=== PATIENT | female | born 1990 | race African-American/Black ===

== ENCOUNTER 2016-07-13 09:06 | Emergency (ER) | payer MEDICAID, OTHER ==
[~2016-07-13] VITALS: Ht 162.6 cm; Wt 96.0 kg
[~2016-07-13 09:06] MED LIST: CYCL1TAB29 PO; MACR100C2 PO; ZOFR4TAB3 SL; [UNRECOGNIZED DRUG - CODE]
[2016-07-13 09:08] VITALS: BP 127/69; PULSE 80; RESP 20; TEMP 98.7; O2SAT 100
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
[2016-07-13] MEDS ORDERED: METHOCARBAMOL 500 MG TAB PO ONE (09:45)
[2016-07-13] MEDS ORDERED: IBUPROFEN 800 MG TAB PO ONE (09:45)
[2016-07-13] MEDS ORDERED: IBUP800T23 PO (09:55)
[2016-07-13] MEDS ORDERED: ROBA500T PO (09:55)
== END 2016-07-13 11:10 | disposition home or self-care (01) ==
LOC: NETRI 09:06
DX: M54.5 Low back pain (principal); G89.29 Other chronic pain; S39.012A Strain of muscle, fascia and tendon of lower back, initial encounter; M54.41 Lumbago with sciatica, right side; V49.59XA Passenger injured in collision with other motor vehicles in traffic accident, initial encounter; Y92.410 Unspecified street and highway as the place of occurrence of the external cause
CPT/HCPCS: 99282; E0113

== ENCOUNTER 2016-09-15 07:47 | Emergency (ER) | payer MEDICAID ==
[~2016-09-15] VITALS: Ht 162.6 cm; Wt 95.0 kg
[~2016-09-15 07:47] MED LIST changes: +IBUP800T23 PO; +ROBA500T PO
[2016-09-15 07:49] VITALS: BP 114/65; PULSE 80; RESP 15; TEMP 98.7; O2SAT 98
--- NOTE | 2016-09-15 08:31 | PD ---
HPI Chief Complaint: ENT Complaint Time Seen by Provider: 08:30 Travel History International Travel<30 days: No Contact w/Intl Traveler<30days: No Traveled to known affect area: No History of Present Illness HPI 25-year-old female, approximately 8 weeks , presents to the emergency department with complaint of sore throat, nasal congestion that onset yesterday. Reports occasional cough but sore throat is her main complaint. Denies ear pain. Says that she's been having hot flashes but has not checked her temperature and cannot reported MAXIMUM TEMPERATURE. Denies lump in throat , difficulty swallowing, unusual drooling. Reports painful swallowing. Denies abdominal pain, cramping, nausea, vomiting. Denies vaginal bleeding or discharge. Has been taking Tylenol with no relief of symptoms. No known allergies. Has no other medical complaints. No other modifying factors or associated signs and symptoms. PFSH Past Medical History Diminished Hearing: No Gastrointestinal Disorders: Yes (ULCERS) GERD: Yes Headaches: Yes Respiratory: Yes (h/o bronchitis pt used to use inhaler but denies use now) Ulcer: Yes ?: LMP: 07/21/16 : 2 Para: 3 Social History Alcohol Use: Yes (OCCASIONALLY) Tobacco Use: No (MARIJUANA,QUIT 07-21-16) Substance Use: Yes (MARIJUANA) Allergies-Medications (Allergen,Severity, Reaction): Coded Allergies: No Known Allergies (Verified , 07/13/16) Reported Meds & Prescriptions Reported Meds & Active Scripts Active Robaxin (Methocarbamol) 500 Mg Tab 500 Mg PO QID PRN Ibuprofen 800 Mg Tab 800 Mg PO Q6HR PRN Zofran Odt (Ondansetron Odt) 4 Mg Tab 4 Mg SL Q6HR PRN Macrobid (Nitrofurantoin Monoh/Nitrofur Macro) 100 Mg Cap 100 Mg PO BID 10 Days Reported Flexeril (Cyclobenzaprine HCl) 10 Mg Tab 10 Mg PO TID Acetaminophen/Codeine Lorenza 300-60 mg (Acetaminophen W/ Codeine) 1 Tab Tab Q8HR Review of Systems Except as stated in HPI: all other systems reviewed are Neg Physical Exam Narrative GENERAL: Well-nourished, well-developed female patient, in no acute distress SKIN: Warm and dry. No rash. HEAD: Atraumatic. Normocephalic. EYES: Pupils equal and round at 3 mm with brisk reaction. No scleral icterus. No injection or drainage. PERRLA. ENT: Mucosa pink and dry. Pharynx with 1+ tonsils; with erythema; without exudate and edema. No Uvular edema. No uvular, palatal, or tonsillar deviation. Airway patent. Nasal congestion noted. EARS: Bilateral pinnae and external canals appear within normal limits. Bilateral tympanic membranes without erythema, dullness or perforation.. NECK: Trachea midline. No Anterior cervical lymphadenopathy and tenderness. CARDIOVASCULAR: Regular rate and rhythm. No murmur appreciated. RESPIRATORY: No accessory muscle use. Clear to auscultation. Breath sounds equal bilaterally. GASTROINTESTINAL: Abdomen soft, non-tender, nondistended. Hepatic and splenic margins not palpable. Bowel sounds are active 4 quadrants. MUSCULOSKELETAL: No obvious deformities. No clubbing. No cyanosis. No edema. NEUROLOGICAL: Awake and alert. Oriented 3. No obvious cranial nerve deficits. Motor grossly within normal limits. Normal speech. Moves all extremities. PSYCHIATRIC: Appropriate mood and affect; insight and judgment normal. Data Data Last Documented VS Vital Signs Date Time Temp Pulse Resp B/P Pulse Ox O2 Delivery O2 Flow Rate FiO2 09/15/16 07:49 98.7 80 15 114/65 98 Orders Group A Rapid Strep Screen (09/15/16 08:31) Strep Culture (Group A) (09/15/16 08:30) [facility] Medical Decision Making Medical Screen Exam Complete: Yes Emergency Medical Condition: Yes Medical Record Reviewed: Yes Differential Diagnosis Viral illness, viral pharyngitis, strep pharyngitis, less likely peritonsillar abscess Narrative Course 25-year-old female with sore throat and nasal congestion. Patient is approximately 8 weeks . Patient is afebrile and nontoxic-appearing. Reports chills, but has not taken her temperature cannot reports MAXIMUM TEMPERATURE. Rapid strep ordered. 0917: Rapid strep negative. Discussed viral illness and symptomatic management. Instructed patient to follow up with process lead. Patient verbalizes understanding and agreement with treatment plan. Patient is medically cleared and stable for discharge. Discussed reasons to return to the emergency department. Instructed patient to follow up with primary care provider. Patient agrees with treatment plan. The patients vital signs are stable and the patient is stable for outpatient follow-up and treatment. Patient discharged home, stable and in no acute distress. Diagnosis Primary Impression: Viral illness Referrals: Primary Care Physician Patient Instructions: Cold Symptoms (ED), General Instructions Departure Forms: Tests/Procedures, Work Release Enter return to work date: Sep 16, 2016 Additional Instructions: Antibiotics as prescribed and complete full course Tylenol as instructed and as needed for fever/pain Get plenty of sleep/rest Drink plenty of fluids to prevent dehydration; popsicles and Gatorade Use an air humidifier/turn off ceiling fans Follow-up with primary care provider Follow-up with process lead Return immediately to the emergency department with worsening of symptoms Med/Other Pt SpecificInfo: No Meds Exist/No RX given Disposition: 01 DISCHARGE HOME Condition: Stable Lisa Waldrop Sep 15, 2016 08:31
== END 2016-09-15 09:37 | disposition home or self-care (01) ==
LOC: NEPK 07:47
DX: O26.91 Pregnancy related conditions, unspecified, first trimester (principal); B34.9 Viral infection, unspecified; K21.9 Gastro-esophageal reflux disease without esophagitis; Z3A.08 8 weeks gestation of pregnancy
CPT/HCPCS: 87081; 87880; 99283

== ENCOUNTER 2016-10-06 08:48 | Emergency (ER) | payer MEDICAID ==
[~2016-10-06] VITALS: Ht 162.6 cm; Wt 95.0 kg
[2016-10-06 08:50] VITALS: BP 135/68; PULSE 89; RESP 16; TEMP 98.2; O2SAT 99
--- NOTE | 2016-10-06 09:09 | PD ---
HPI Chief Complaint: Related Problem Time Seen by Provider: 09:08 Travel History International Travel<30 days: No Contact w/Intl Traveler<30days: No Traveled to known affect area: No History of Present Illness HPI 26-year-old female who is 10 weeks came to the emergency room for feeling lightheaded and dizzy. Patient says this has been going on for past 1 week. Yesterday she had her blood pressure checked and her systolic was 99. No history of spotting or cramping. Patient is A1. Patient has not had any OB checkup yet. She says she had an appointment yesterday which she missed. Currently she does not appear to be in any significant distress and her vital signs are stable. Her blood sugar was 84. PFSH Past Medical History Narrative Medical List of her past medical, surgical, social and family history was reviewed from the nursing note. Diminished Hearing: No Gastrointestinal Disorders: Yes (ULCERS) GERD: Yes Headaches: Yes Respiratory: Yes (h/o bronchitis pt used to use inhaler but denies use now) Ulcer: Yes ?: : 2 Para: 3 Social History Alcohol Use: Yes (OCCASIONALLY) Tobacco Use: No (MARIJUANA,QUIT 07-21-16) Substance Use: Yes (MARIJUANA) Allergies-Medications (Allergen,Severity, Reaction): Coded Allergies: No Known Allergies (Verified , 10/06/16) Comments No known drug allergies Reported Meds & Prescriptions Reported Meds & Active Scripts Active Macrobid (Nitrofurantoin Monoh/Nitrofur Macro) 100 Mg Cap 100 Mg PO BID 7 Days [facility] ( 2/Iron/Folic Acid/Om3) 1 Each Combo..pkg 1 Tab PO DAILY 30 Days Robaxin (Methocarbamol) 500 Mg Tab 500 Mg PO QID PRN Ibuprofen 800 Mg Tab 800 Mg PO Q6HR PRN Zofran Odt (Ondansetron Odt) 4 Mg Tab 4 Mg SL Q6HR PRN Macrobid (Nitrofurantoin Monoh/Nitrofur Macro) 100 Mg Cap 100 Mg PO BID 10 Days Reported Flexeril (Cyclobenzaprine HCl) 10 Mg Tab 10 Mg PO TID Acetaminophen/Codeine Lorenza 300-60 mg (Acetaminophen W/ Codeine) 1 Tab Tab Q8HR Narrative Medication List of her home medications reviewed from the nursing note. Review of Systems Except as stated in HPI: all other systems reviewed are Neg Physical Exam Narrative GENERAL: Awake, alert, no obvious distress SKIN: Focused skin assessment warm/dry. HEAD: Atraumatic. Normocephalic. EYES: Pupils equal and round. No scleral icterus. No injection or drainage. ENT: No nasal bleeding or discharge. Mucous membranes pink and moist. NECK: Trachea midline. No JVD. CARDIOVASCULAR: Regular rate and rhythm. No murmur appreciated. RESPIRATORY: No accessory muscle use. Clear to auscultation. Breath sounds equal bilaterally. GASTROINTESTINAL: Abdomen soft, non-tender, nondistended. Hepatic and splenic margins not palpable. MUSCULOSKELETAL: No obvious deformities. No clubbing. No cyanosis. No edema. NEUROLOGICAL: Awake and alert. No obvious cranial nerve deficits. Motor grossly within normal limits. Normal speech. PSYCHIATRIC: Appropriate mood and affect; insight and judgment normal. Data Data Last Documented VS Vital Signs Date Time Temp Pulse Resp B/P Pulse Ox O2 Delivery O2 Flow Rate FiO2 10/06/16 10:41 81 16 105/61 99 10/06/16 08:50 98.2 Orders Urinalysis - C+S If Indicated (10/06/16 09:13) Ed Urine Pregnancytest Poc (10/06/16 09:13) Blood Glucose (10/06/16 09:13) Urine Culture (10/06/16 09:20) Nitrofurantoin Monohyd Macrocr (Macrobid (10/06/16 10:30) Labs Laboratory Tests Test 10/06/16 09:20 Urine Color YELLOW Urine Turbidity CLEAR Urine pH 8.0 Urine Specific [place] 1.011 Urine Protein NEG mg/dL Urine Glucose (UA) NEG mg/dL Urine Ketones NEG mg/dL Urine Occult Blood NEG Urine Nitrite NEG Urine Bilirubin NEG Urine Urobilinogen LESS THAN 2.0 MG/DL Urine Leukocyte Esterase SMALL Urine RBC 1 /hpf Urine WBC 10 /hpf Urine Squamous Epithelial 1 /hpf Cells Urine Mucus FEW /lpf Microscopic Urinalysis Comment CULTURE INDICATED MDM Medical Decision Making Medical Screen Exam Complete: Yes Emergency Medical Condition: Yes Medical Record Reviewed: Yes Differential Diagnosis Dehydration, anemia, related dizziness Narrative Course 9:28 AM patient is given some orange juice to drink. Her sugar is all right. Continues to be hemodynamically stable. Awaiting for the UA to be done and resulted. If this is within normal limits patient will be discharged home. She needs to follow up with her OB. I'll give her prescription for vitamins since she is not on 1. 10:21 AM UA shows possible UTI. I gave her a dose of Macrobid and prescription to go home with. Procedures EKG Prior to Arrival: No Diagnosis Primary Impression: First trimester Additional Impressions: Dizziness UTI (urinary tract infection) Qualified Code: N39.0 - Urinary tract infection without hematuria, site unspecified Referrals: Primary Care Physician Additional Instructions: Please follow-up with your OB. Do not miss the next appointment. Take the pills as per the prescription direction. If symptoms worsen please call your OB to get an appointment sooner. Med/Other Pt SpecificInfo: Prescription(s) given Scripts Nitrofurantoin Monohydrate Macrocrystals (Macrobid)100 Mg [id number] Mg PO BID 7 Days Ref 0 Prov:Deniz Hernandez MD 10/06/16 2/Iron/Folic Acid/Om3 ([facility])1 Each Combo..pkg1 Tab PO DAILY 30 Days Prov:Deniz Hernandez MD 10/06/16 Disposition: 01 DISCHARGE HOME Condition: Stable Deniz Hernandez MD Oct 06, 2016 09:09
[2016-10-06] MEDS ORDERED: TRUSPAK PO (09:30)
[2016-10-06 09:49] LABS: BLOOD, URINE NEG (NEG); COMMENT (UR) CULTURE INDICATED; CULTURE IF INDICATED CULTURE INDICATED; GLUCOSE,URINE NEG (NEG); KETONE, URINE NEG (NEG); MUCUS URINE FEW /lpf (OCC); NITRITE,URINE NEG (NEG); SQUAMOUS EPITHELIAL CELL URINE 1 /hpf (0-5); URINE COLOR YELLOW (YELLW/STRAW)
[2016-10-06] MEDS ORDERED: MACR100C2 PO (10:22)
[2016-10-06] MEDS ORDERED: NITROFURANTOIN MONOHYD MACROCR 100 MG CAP PO ONE (10:30)
[2016-10-06 10:41] VITALS: BP 105/61
== END 2016-10-06 10:43 | disposition home or self-care (01) ==
LOC: NEPD 08:48
DX: O23.91 Unspecified genitourinary tract infection in pregnancy, first trimester (principal); Z3A.10 10 weeks gestation of pregnancy
CPT/HCPCS: 81001; 84703; 87086; 99284